=== PATIENT | male | born 1955 | race Caucasian/White ===

== ENCOUNTER 2018-04-17 18:21 | Emergency (ER) | payer BC ==
[~2018-04-17] VITALS: Ht 172.7 cm; Wt 63.5 kg
[2018-04-17] MEDS ORDERED: LIPITOR10 MG PO (18:51)
[2018-04-17] MEDS ORDERED: IBUPROFEN 200200 M1 PO (18:52)
[2018-04-17] MEDS ORDERED: LEXAPRO 10 MG T10 M2 PO (18:52)
[2018-04-17] MEDS ORDERED: ASPIR 8181 MG PO (18:53)
[2018-04-17] MEDS ORDERED: TRAMADOL 50 MG50 MG PO (18:53)
[2018-04-17] MEDS ORDERED: MOBIC15 MG PO (20:38)
[2018-04-17] MEDS ORDERED: NORCO 5-325 TA1 EACH PO (20:38)
[2018-04-17 20:48] VITALS: BP 148/82
== END 2018-04-17 20:49 | disposition home or self-care (01) ==
LOC: ER 18:21
DX: S01.411A Laceration without foreign body of right cheek and temporomandibular area, initial encounter (principal); S01.111A Laceration without foreign body of right eyelid and periocular area, initial encounter; M19.90 Unspecified osteoarthritis, unspecified site; E78.00 Pure hypercholesterolemia, unspecified; W22.8XXA Striking against or struck by other objects, initial encounter; Y93.89 Activity, other specified; Y92.89 Other specified places as the place of occurrence of the external cause; Y99.8 Other external cause status